=== PATIENT | female | born 1980 ===

== ENCOUNTER 2017-02-02 20:50 | Inpatient (IN) | payer OTHER ==
[2017-02-02 21:38] LABS: ARTERIAL BLOOD GAS pH 7.42 (7.35-7.45)
[2017-02-02 21:39] LABS: ARTERIAL BLD GAS O2 SATURATION 51.1 % (90-98.9); ARTERIAL BLOOD GAS BASE EXCESS -1.1 meq/l (-2-2); ARTERIAL BLOOD GAS HCO3 22.4 meq/L (22-26)
[2017-02-02 21:42] LABS: ARTERIAL BLD GAS O2 SATURATION 32.8 % (90-98.9); ARTERIAL BLOOD GAS BASE EXCESS -1.9 meq/l (-2-2); ARTERIAL BLOOD GAS HCO3 23.6 meq/L (22-26); ARTERIAL BLOOD GAS pH 7.33 (7.35-7.45)
[2017-02-02 21:43] LABS: ARTERIAL BLOOD GAS PO2 23.1 mmHg (80-100)
[2017-02-02 21:46] LABS: BASOPHIL 0.3 % (0-2.0); EOSINOPHIL 0.3 % (0-4.5); MCH 30.7 pg (25.7-33.7); MCHC 34.9 g/dl (32.0-36.0); MEAN PLT VOLUME 9.4 fl (7.5-11.1); NEUTROPHILS 70.6 % (42.8-82.8); PLATELET COUNT 210 K/MM3 (134-434); WHITE BLOOD COUNT 8.7 K/mm3 (4.0-10.0)
[2017-02-02] MEDS ORDERED: BENZOCAINE 20% 57 GM BOTTLE TP PRN (21:48)
[2017-02-02] MEDS ORDERED: METHYLERGONOVINE MALEATE 0.2 MG/1 ML AMP IM PRN (21:48)
[2017-02-02] MEDS ORDERED: BISACODYL 10 MG SUPP.RECT RC PRN (21:48)
[2017-02-02] MEDS ORDERED: BENZOCAINE 28 GM HEMORRHOIDAL OINTMENT TP PRN (21:48)
[2017-02-02] MEDS ORDERED: WITCH HAZEL 50% (TUCKS) 40 PAD/JAR PAD TP PRN (21:48)
[2017-02-02] MEDS ORDERED: OXYTOCIN 10 UNITS/ML VIAL IM ONE (21:50)
[2017-02-02 22:00] LABS: INR 0.98 (0.82-1.09); PROTHROMBIN TIME (PATIENT) 10.8 SEC (9.98-11.88)
[2017-02-02 22:02] LABS: ACTIVATED PTT 23.4 SECONDS (26.9-34.4)
--- NOTE | 2017-02-02 22:02 | HP ---
Past Medical History - Primary Care Physician PCP:: Jose Scott - Admission Chief Complaint: 36yo P3 with at EGA 38w1d admitted in spontaneous active labor. The pt presented to L&D unit with SROM on admission. She proceeded to have within 5-10min of presentation. History Source: Patient Limitations to Obtaining History: Clinical Condition - Past Medical History SQE: No: Alzheimer's, CVA, Dementia, Migraine, Multiple Sclerosis, Peripheral Neuropathy, Parkinson's, Seizure, Syncope, TIA, Vertigo, Other Pulmonary: No: Asthma, Bronchitis, Cancer, COPD, O2 Dependent, Pneumonia, Previously Intubated, Pulmonary Embolus, Pulmonary Fibrosis, Sleep Apnea, Other Gastrointestinal: No: Ascites, Cancer, Constipation, Crohn's Disease, Diverticulitis, Diverticulosis, Esophageal Varices, Gastritis, GERD, GI Bleed, Hemorrhoids, Hiatal Hernia, Inflamatory Bowel Disease, Irritable Bowel Disease, Pancreatitis, Peptic Ulcer Disease, Ulcerative Colitis, Other Hepatobiliary: No: Cirrhosis, Cholelithiasis, Cholecystitis, Choledocholithiasis , Hepatitis A, Hepatitis B, Hepatitis C, Other Renal/: No: Renal Failure, Renal Inusuff, BPH, Cancer, Hematuria, Hemodialysis , Neurogenic Bladder, Renal Calculi, UTI, Other ...Para: 3 Heme/Onc: No: Anemia, B12 Deficiency, Bleeding Disorder, Cancer, Current Chemotherapy, Current Radiation Therapy, Hemochromatosis, Hypercoaguable State, Myeloproliferative Synd, Sickle Cell Disease, Sickle Cell Trait, Thrombocytopenia, Other Infectious Disease: No: AIDS, C-Diff, Herpes Zoster, HIV, MRSA, STD's, Tuberculosis, VREF, Other Psych: No: Addictions, Anxiety, Bipolar, Depression, Panic, Psychosis, Schizophrenia, Other Musculoskeletal: No: Bursitis, Chronic low back pain, Hemiparesis, Hemiplegia, Osteoarthritis, Paraplegia, Other Rheumatology: No: Fibromyalgia, Gout, Lupus, Rheumatoid Arthritis, Sarcoidosis, Vasculitis, Other ENT: No: Allergic Rhinitis, Sinusitis, Other Endocrine: No: Garret's Disease, Nimco's Disease, Diabetes Insipidus, Diabetes Mellitus, Hyperparathyroidism, Hyperthyroidism, Hypothyroidism, Osteopenia, SIADH, Other Dermatology: No: Basal Cell, Cellulitis, Eczema, Melanoma, Psoriasis, Squamous Cell, Other - Past Surgical History Past Surgical History: Yes: None Hx Myomectomy: No Hx Transabdominal Cerclage: No - Smoking History Have you smoked in the past 12 months: No - Alcohol/Substance Use Hx Alcohol Use: No - Social History Usual Living Arrangement: Yes: With Spouse, With Child ADL: Independent History of Recent Travel: No Family Disease History - Family Disease History Family History: Unable to Obtain Review of Systems - Review of Systems Constitutional: reports: Other (active labor) Eyes: reports: No Symptoms HENT: reports: No Symptoms Neck: reports: No Symptoms Cardiovascular: reports: No Symptoms Respiratory: reports: No Symptoms Gastrointestinal: reports: No Symptoms Genitourinary: reports: No Symptoms Breasts: reports: No Symptoms Reported Musculoskeletal: reports: No Symptoms Integumentary: reports: No Symptoms Neurological: reports: No Symptoms Endocrine: reports: No Symptoms Hematology/Lymphatic: reports: No Symptoms Psychiatric: reports: No Symptoms Pain Intensity: 10 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 The pt presented to L&D unit with [facility]OM on admission. She proceeded to have within 5-10min of presentation. Uncomplicated .
[2017-02-02 22:19] LABS: ANION GAP 12 (8-16); CALCIUM 8.8 mg/dL (8.5-10.1); CO2 20 mmol/L (21-32); CREATININE 0.5 mg/dL (0.55-1.02); GLUCOSE,RANDOM 96 mg/dL (74-106)
[2017-02-02 22:46] VITALS: BMI 27.9
[2017-02-02 23:26] LABS: HIV 1 & 2 AB NEGATIVE; HIV 1 AGp24 NEGATIVE
[2017-02-02] MEDS: ACETAMINOPHEN 325 MG TABLET (FP) PO PRN (23:36)
[2017-02-02] MEDS: IBUPROFEN 600 MG TABLET (FP) PO PRN (23:37)
[2017-02-03 07:49] LABS: BASOPHIL 0.3 % (0-2.0); EOSINOPHIL 0.5 % (0-4.5); MCH 30.5 pg (25.7-33.7); MCHC 34.5 g/dl (32.0-36.0); MEAN CELL VOLUME 88.5 fl (80-96); MEAN PLT VOLUME 9.2 fl (7.5-11.1); NEUTROPHILS 74.4 % (42.8-82.8); PLATELET COUNT 206 K/MM3 (134-434); RDW 14.2 % (11.6-15.6); WHITE BLOOD COUNT 11.5 K/mm3 (4.0-10.0)
--- NOTE | 2017-02-03 09:02 | PN ---
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
--- NOTE | 2017-02-03 09:04 | PN ---
Post Progress Note - Subjective Subjective: No complaints Post Day: 1 Type of Delivery: Vital Signs: Vital Signs Temperature 97.8 F 02/03/17 05:00 Pulse Rate 67 02/03/17 05:00 Respiratory Rate 20 02/03/17 05:00 Blood Pressure 106/67 02/03/17 05:00 O2 Sat by Pulse Oximetry (%) 100 02/02/17 22:05 Breast Exam: Yes: Soft Uterus: Yes: Fundus Firm, Fundus below umbilicus, Non-tender Abdomen/GI: Yes: Abdomen soft, Passing flatus Lochia: Yes: Rubra Lochia, amount: Small Extremities: Yes: Calves non-tender (varicose veins, TEDS on) Perineum: Yes: Intact Activity: Ambulating - Labs Labs: CBC WBC 11.5 K/mm3 (4.0-10.0) H D 02/03/17 06:50 RBC 3.94 M/mm3 (3.60-5.2) 02/03/17 06:50 Hgb 12.0 GM/dL (10.7-15.3) 02/03/17 06:50 Hct 34.9 % (32.4-45.2) 02/03/17 06:50 MCV 88.5 fl (80-96) 02/03/17 06:50 MCH 30.5 pg (25.7-33.7) 02/03/17 06:50 MCHC 34.5 g/dl (32.0-36.0) 02/03/17 06:50 RDW 14.2 % (11.6-15.6) 02/03/17 06:50 Plt Count 206 K/MM3 (134-434) 02/03/17 06:50 MPV 9.2 fl (7.5-11.1) 02/03/17 06:50 Neutrophils % 74.4 % (42.8-82.8) 02/03/17 06:50 Lymphocytes % 16.3 % (8-40) D 02/03/17 06:50 Monocytes % 8.5 % (3.8-10.2) 02/03/17 06:50 Eosinophils % 0.5 % (0-4.5) 02/03/17 06:50 Basophils % 0.3 % (0-2.0) 02/03/17 06:50 Assessment/Plan 36yo P4 s/p , doing well stable, afebrile. care instructions reviewed. Continue routine care. Ambulation encouraged Discharge instruction reviewed
[2017-02-03] MEDS: PRENATAL VITAMINS W/ FOLIC ACID TABLET (FP) PO SCH (09:46)
[2017-02-03] MEDS: IBUPROFEN 600 MG TABLET (FP) PO PRN ×3 (09:46→23:12)
[2017-02-03] MEDS: ACETAMINOPHEN 325 MG TABLET (FP) PO PRN ×3 (09:47→23:13)
[2017-02-03] MEDS ORDERED: DIPHTH,PERTUSS(ACELL),TET 0.5 ML DISP.SYRIN IM ONE (10:00)
--- NOTE | 2017-02-03 15:16 | DS ---
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 Vital Signs: Vital Signs Temperature 98.2 F 02/03/17 14:00 Pulse Rate 70 02/03/17 14:00 Respiratory Rate 20 02/03/17 14:00 Blood Pressure 104/60 02/03/17 14:00 O2 Sat by Pulse Oximetry (%) 100 02/02/17 22:05 Constitutional: Yes: Well Nourished, No Distress, Calm Eyes: Yes: WNL, Conjunctiva Clear, EOM Intact HENT: Yes: WNL, Atraumatic, Normocephalic Neck: Yes: WNL, Supple, Trachea Midline Cardiovascular: Yes: Regular Rate and Rhythm, Varicosities Respiratory: Yes: WNL, Regular, CTA Bilaterally Gastrointestinal: Yes: WNL, Normal Bowel Sounds, Soft ...Rectal Exam: Yes: WNL Renal/: Yes: WNL External Genitalia: Yes: Normal Internal Exam Deferred: Yes ....Post : Yes: Uterus firm, Uterus non-tender, Slight lochia rubra Breast(s): Yes: WNL Musculoskeletal: Yes: WNL Extremities: Yes: WNL Integumentary: Yes: WNL Neurological: Yes: WNL, Alert, Oriented ...Motor Strength: WNL Psychiatric: Yes: WNL, Alert, Oriented Labs: CBC, BMP 02/03/17 06:50 02/02/17 21:30 Delivery - Delivery Vaginal Delivery: No Problems, Spontaneous Type of Anesthesia: None Episiotomy/Laceration: None EBL (cc): 300 Delivery, Single - Stages of Labor Date 1st Stage Initiatied: 02/02/17 Time 1st Stage Initiated: 17:00 Date 2nd Stage Initiated: 02/02/17 Time 2nd Stage Initiated: 20:55 Date of Delivery: 02/02/17 Time of Delivery: 21:04 Time Placenta Delivered: 21:15 Placenta: Yes: Spontaneous, Normal Configuration - 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 Double End/Coil Maker Present: No Gender: Male Weight: 3.232 kg Position: Right, OA Total Hours ROM (Hrs/Mins): 20min - 1 Minute Total Score: 9 5 Minutes Total Score: 9 - [place] Feeding Plan Initial Plan: Elected not to breastfeed exclusively throughout hospitalization Remarks - Remarks Remarks: Normal spontaneous vaginal delivery Discharge Summary Reason For Visit: ADMIT Spontaneous labor at 38w1d AMA Procedures: Principal: LUCÍA Hospital Course: Normal recovery Condition: Good - Instructions Diet, Activity, Other Instructions: Physical activity Resume your normal everyday activity as tolerated no heavy lifting or exercise until seen by your surgeon. You may walk unlimited malcom of and climb stairs. You may resume driving the car when you feel safe and comfortable behind the wheel. No sexual activity as instructed. Wound care If you have a bandage, leave it on, and keep dry for 48-72 hours. After that time discard the outer bandage. If they are tapes on the skin under the out of bandage leave them in place. They will peel off in the next 7 to 10 days. Do Not Peel them off. You may shower the day after surgery. If there are tapes present on the skin, you may shower over them. Diet There are no dietary restrictions. Eat healthy, high-fiber foods. Drink 6 to 8 glasses of liquid each day. This will assist in keeping your bowels are regular. Pain management You may take Tylenol or acetaminophen or Ibuprofen (for example, Motrin, Advil etc.) from my pain prescription medication is ordered should be taken as prescribed for moderate to severe pain. Call MD for any of the following: Severe pain not relieved by medication Fever of 101 or higher Excessive bleeding or drainage on dressing Inability to urinate Referrals: Aura Chung MD [Staff Physician] - - Home Medications Comprehensive Discharge Medication List: Ambulatory Orders Vitamins (Sjr) - 1 tab PO DAILY 02/02/17
[2017-02-03] MEDS ORDERED: SENNOSIDES/DOCUSATE COMBO (SENNA PLUS) TABLET (UD) PO PRN (22:00)
--- NOTE | 2017-02-04 00:14 | PN ---
Post Progress Note - Subjective Subjective: Patient without acute complaints. Reports tolerating oral intake without nausea or vomiting. Ambulating without dizziness. Denies fevers or chills. Pain well controlled with oral pain medication. without difficulty. Passing flatus. Post Day: 2 Type of Delivery: Vital Signs: Vital Signs Temperature 98.2 F 02/03/17 22:00 Pulse Rate 74 02/03/17 22:00 Respiratory Rate 18 02/03/17 22:00 Blood Pressure 107/56 02/03/17 22:00 O2 Sat by Pulse Oximetry (%) 100 02/02/17 22:05 Breast Exam: Yes: Engorged Uterus: Yes: Fundus Firm Abdomen/GI: Yes: Abdomen soft, Passing flatus, Tolerating PO. No: Tender Lochia: Yes: Serosa Lochia, amount: Small Extremities: Yes: Calves non-tender, Edema (trace) Activity: Ambulating - Labs Labs: CBC WBC 11.5 K/mm3 (4.0-10.0) H D 02/03/17 06:50 RBC 3.94 M/mm3 (3.60-5.2) 02/03/17 06:50 Hgb 12.0 GM/dL (10.7-15.3) 02/03/17 06:50 Hct 34.9 % (32.4-45.2) 02/03/17 06:50 MCV 88.5 fl (80-96) 02/03/17 06:50 MCH 30.5 pg (25.7-33.7) 02/03/17 06:50 MCHC 34.5 g/dl (32.0-36.0) 02/03/17 06:50 RDW 14.2 % (11.6-15.6) 02/03/17 06:50 Plt Count 206 K/MM3 (134-434) 02/03/17 06:50 MPV 9.2 fl (7.5-11.1) 02/03/17 06:50 Neutrophils % 74.4 % (42.8-82.8) 02/03/17 06:50 Lymphocytes % 16.3 % (8-40) D 02/03/17 06:50 Monocytes % 8.5 % (3.8-10.2) 02/03/17 06:50 Eosinophils % 0.5 % (0-4.5) 02/03/17 06:50 Basophils % 0.3 % (0-2.0) 02/03/17 06:50 Assessment/Plan 36 yo PPD # 2 s/p , afebrile, vital signs stable, doing well 1. Patient stable for discharge home today. 2. Patient encouraged to contact MD for: - Severe pain not controlled by oral pain medication - Fevers or chills - Nausea or vomiting, intolerance of oral intake 3. Patient to follow up in office in 4-6 weeks for visit 4. Patient states desires circumcision for . Discussed risks including infection, bleeding, damage to tip of penis, and unsatisfactory result, resulting in surgical repair or repeat circumcision. Patient expressed understanding and consents to procedure. Reviewed infants chart, normal genitalia per account support manager, Dr. Soto
[2017-02-04] MEDS: PRENATAL VITAMINS W/ FOLIC ACID TABLET (FP) PO SCH (09:24)
[2017-02-04 11:03] VITALS: BP 105/58; PULSE 71; TEMP 97.9
== END 2017-02-04 13:40 | disposition home or self-care (01) | DRG 560 ==
LOC: JLDR 20:50 → J3W 23:30
PROVIDERS: ADMIT Obstetrics & Gynecology; ATTEND Obstetrics & Gynecology
PROC: 10E0XZZ Delivery of Products of Conception, External Approach (ICD-10-PCS; principal; 2017-02-02)
DX: O80 Encounter for full-term uncomplicated delivery (principal); Z3A.38 38 weeks gestation of pregnancy; Z37.0 Single live birth
CPT/HCPCS: 36415; 36600; 59409; 71020-TC; 80048; 82803; 85025; 85610; 85730; 86593; 86850; 86900; 86901; 87389